=== PATIENT | male | born 1980 | race Hispanic/Latino ===

== ENCOUNTER 2022-06-08 07:51 | Emergency (ER) | payer OTHER, MEDICARE ==
[~2022-06-08] VITALS: Ht 185.4 cm; Wt 210.0 kg
[2022-06-08] MEDS ORDERED: ACETAMINOPHEN 500 MG TABLET ONE (09:12)
[2022-06-08 10:01] VITALS: BP 130/83
== END 2022-06-08 10:06 | disposition home or self-care (01) ==
LOC: EDH 07:51
DX: S96.912A Strain of unspecified muscle and tendon at ankle and foot level, left foot, initial encounter (principal); I10 Essential (primary) hypertension; K21.9 Gastro-esophageal reflux disease without esophagitis; F41.0 Panic disorder [episodic paroxysmal anxiety]; Z98.84 Bariatric surgery status; Z98.890 Other specified postprocedural states; X58.XXXA Exposure to other specified factors, initial encounter; Y93.89 Activity, other specified; Y92.89 Other specified places as the place of occurrence of the external cause; Y99.8 Other external cause status
CPT/HCPCS: 93971

== ENCOUNTER 2022-10-01 15:16 | Inpatient (IN) | payer OTHER ==
[~2022-10-01] VITALS: Ht 185.4 cm; Wt 190.8 kg
[~2022-10-01 15:16] MED LIST: DIPH1TAB PO; ONDA4TAB10 PO
[2022-10-01] MEDS ORDERED: ZOSYN 3.375GM+NS 50ML 50 ML IVPB STA (15:31)
[2022-10-01 15:51] LABS: HEMATOCRIT 50.1 % (42-54); MEAN CORPUSCULAR HEMOGLOBIN 30.5 pg (27.0-33.0); MEAN CORPUSCULAR HGB CONC 35.1 g/dL (32.0-36.0); MEAN CORPUSCULAR VOLUME 86.8 fL (79-99); RED BLOOD CELL COUNT(AUTO) 5.77 MIL/uL (4.50-6.20); RED CELL DISTRIBUTION WIDTH 14.9 % (11.0-15.5); WHITE BLOOD COUNT (AUTO) 3.9 K/uL (4.8-10.8)
[2022-10-01] MEDS ORDERED: 0.9%NACL 1000ML 2,397 ML IV ONE (16:00)
[2022-10-01] MEDS ORDERED: KETOROLAC 15MG/ML VIAL (15MG/ML) IV ONE (16:00)
[2022-10-01] MEDS ORDERED: ACETAMINOPHEN 325 MG TAB PO ONE (16:00)
[2022-10-01] MEDS ORDERED: PANTOPRAZOLE 40 MG/VIAL IVP ONE (16:00)
[2022-10-01] MEDS ORDERED: ONDANSETRON 4MG INJ IVP ONE (16:00)
[2022-10-01] MEDS ORDERED: MORPHINE 2 MG SYG IVP ONE (16:00)
[2022-10-01 16:08] LABS: CREATININE 1.9 mg/dL (0.5-1.5); POTASSIUM 4.1 mmol/L (3.5-5.1)
[2022-10-01 16:17] LABS: ALBUMIN 2.4 g/dL (3.5-5.0); TOTAL PROTEIN, SERUM 7.1 g/dL (6.0-8.3)
[2022-10-01] MEDS ORDERED: IOHEXOL-350 75 ML VIAL IV ONE (16:27)
[2022-10-01 16:47] VITALS: TEMP 98.9
[2022-10-01 17:48] LABS: APPEARANCE,URINE CLOUDY (CLEAR); BILIRUBIN,URINE NEGATIVE (NEGATIVE); COLOR,URINE YELLOW (YELLOW); GLUCOSE, URINE (UA) NEGATIVE (NEGATIVE); KETONES,URINE 5 mg/dL (NEGATIVE); LEUKOCYTE ESTERASE ,URINE NEGATIVE Leu/uL (NEGATIVE); NITRATE,URINE NEGATIVE (NEGATIVE); OCCULT BLOOD,URINE SMALL (NEGATIVE); PROTEIN,URINE 70 mg/dL (NEGATIVE); UROBILINOGEN,URINE 0.2 mg/dL (0.2-1.0)
[2022-10-01 17:51] LABS: BACTERIA,URINE RARE /HPF (None Seen); MUCUS,URINE RARE LPF (None Seen); OTHER CASTS, URINE 1 /LPF (None Seen); SQUAMOUS EPITHELIAL CELL,UR RARE /HPF (0-2); YEAST,URINE BUDDING FEW /HPF (None Seen)
[2022-10-01] MEDS ORDERED: MORPHINE 4 MG SYG IV PRN (18:30)
[2022-10-01] MEDS ORDERED: CEFTRIAXONE 1G VIAL 1 GM in 0.9%NACL 50ML 50 ML IV SCH (18:30)
[2022-10-01] MEDS ORDERED: ACETAMINOPHEN 325 MG TAB PO PRN (18:30)
[2022-10-01] MEDS ORDERED: ONDANSETRON 4MG INJ IV PRN (18:30)
[2022-10-01] MEDS ORDERED: LACTATED RINGERS 1000ML 2,397 ML IV ONE (19:00)
[2022-10-01] MEDS: CEFTRIAXONE 1G VIAL IVPB SCH (19:00)
[2022-10-01] MEDS: DOXYCYCLINE 100MG+NS 250ML 250 ML IV SCH (19:18)
[2022-10-01] MEDS: LACTATED RINGERS 1000ML 1,000 ML IV SCH (19:19)
[2022-10-01] MEDS: FAMOTIDINE 20MG TAB PO SCH (20:41)
[2022-10-01] MEDS: NYSTATIN 15 GM POWDER TP SCH (20:41)
[2022-10-01 21:00] VITALS: BP 87/63; PULSE 95; RESP 20
[2022-10-01 21:05] VITALS: BP 87/63; PULSE 95; RESP 21
[2022-10-01] MEDS: ALPRAZOLAM 1 MG TAB PO PRN (23:24)
[2022-10-01 23:34] VITALS: PULSE 95; RESP 18; RESP 20; O2SAT 92
[2022-10-01] MEDS: IPRATROPIUM/ALBUTEROL SULFATE 3 ML SOLUTION IH SCH (23:34)
[2022-10-01 23:38] LABS: CREATININE,URINE RANDOM 284 mg/dL (30-135); SODIUM,URINE RANDOM < 14 mmol/l (40-220)
[2022-10-02] VITALS (14 sets, daily range): BP systolic 101–150; BP diastolic 52–72; PULSE 88–101; RESP 16–22; O2SAT 94–95
[2022-10-02 05:19] LABS: BASOPHILS % (AUTO) 1.2 % (0.0-5.0); CREATININE 1.5 mg/dL (0.5-1.5); EOSINOPHILS % (AUTO) 0.2 % (0.0-8.0); LYMPHOCYTES % (AUTO) 19.7 % (21.0-51.0); MAGNESIUM 1.7 mg/dL (1.80-2.40); MEAN CORPUSCULAR HEMOGLOBIN 30.7 pg (27.0-33.0); MEAN CORPUSCULAR HGB CONC 35.2 g/dL (32.0-36.0); MEAN CORPUSCULAR VOLUME 87.1 fL (79-99); MONOCYTES % (AUTO) 20.2 % (3.0-13.0); NEUTROPHILS % (AUTO) 58.2 % (40.0-77.0); PHOSPHORUS 1.8 mg/dL (2.5-4.9); PLATELET COUNT (AUTO) 71 K/uL (130-400); POTASSIUM 3.4 mmol/L (3.5-5.1); RED BLOOD CELL COUNT(AUTO) 5.05 MIL/uL (4.50-6.20); WHITE BLOOD COUNT (AUTO) 5.7 K/uL (4.8-10.8)
[2022-10-02] MEDS: DOXYCYCLINE 100MG+NS 250ML 250 ML IV SCH ×2 (05:25→18:30)
[2022-10-02] MEDS: IPRATROPIUM/ALBUTEROL SULFATE 3 ML SOLUTION IH SCH ×4 (06:40→23:14)
[2022-10-02] MEDS: LACTATED RINGERS 1000ML 1,000 ML IV SCH ×2 (07:50→16:47)
[2022-10-02] MEDS ORDERED: POTASSIUM CHLORIDE 10% ELIXIR 20 MEQ/15 ML UDCUP PO PRN (08:00)
[2022-10-02] MEDS ORDERED: POTASSIUM CHLORIDE 20MEQ/100ML 100 ML IV PRN (08:00)
[2022-10-02] MEDS: FAMOTIDINE 20MG TAB PO SCH ×2 (08:21→21:08)
[2022-10-02] MEDS: KCL 20 MEQ ERTAB PO PRN ×2 (08:21→12:45)
[2022-10-02] MEDS: MAGNESIUM 2GM PREMIX 50ML 50 ML IV PRN (08:21)
[2022-10-02] MEDS: ACETAMINOPHEN 325 MG TAB PO PRN (08:26)
[2022-10-02] MEDS ORDERED: ENOXAPARIN SODIUM 40 MG/0.4 ML SYRINGE SQ SCH (09:00)
[2022-10-02] MEDS: NYSTATIN 15 GM POWDER TP SCH ×3 (09:22→21:10)
[2022-10-02] MEDS ORDERED: FLUCONAZOLE 100 MG TAB PO ONE (10:00)
[2022-10-02] MEDS ORDERED: PEG 3350/NA SULF,BICARB,CL/KCL 4000 ML SOLN PO STA (18:01)
[2022-10-02] MEDS ORDERED: PEG 3350/NA SULF,BICARB,CL/KCL 4000 ML SOLN PO ONE (18:30)
[2022-10-02] MEDS: CEFTRIAXONE 1G VIAL IVPB SCH (21:08)
[2022-10-02] MEDS: ALPRAZOLAM 1 MG TAB PO PRN (23:58)
[2022-10-03] VITALS (15 sets, daily range): BP systolic 98–130; BP diastolic 60–93; PULSE 75–105; RESP 16–22; O2SAT 94–97
[2022-10-03 04:38] LABS: BASOPHILS % (AUTO) 0.1 % (0.0-5.0); EOSINOPHILS % (AUTO) 0.1 % (0.0-8.0); HEMATOCRIT 42.6 % (42-54); LYMPHOCYTES % (AUTO) 17.7 % (21.0-51.0); MEAN CORPUSCULAR HEMOGLOBIN 29.9 pg (27.0-33.0); MEAN CORPUSCULAR HGB CONC 33.8 g/dL (32.0-36.0); MEAN CORPUSCULAR VOLUME 88.6 fL (79-99); MONOCYTES % (AUTO) 14.2 % (3.0-13.0); PLATELET COUNT (AUTO) 90 K/uL (130-400); RED BLOOD CELL COUNT(AUTO) 4.81 MIL/uL (4.50-6.20); RED CELL DISTRIBUTION WIDTH 15.4 % (11.0-15.5); WHITE BLOOD COUNT (AUTO) 10.9 K/uL (4.8-10.8)
[2022-10-03 05:35] LABS: CREATININE 1.2 mg/dL (0.5-1.5); POTASSIUM 3.4 mmol/L (3.5-5.1)
[2022-10-03 05:44] LABS: CRP QUANTITATIVE 238.1 mg/L (0.00-9.0)
[2022-10-03] MEDS: IPRATROPIUM/ALBUTEROL SULFATE 3 ML SOLUTION IH SCH ×4 (06:00→23:00)
[2022-10-03] MEDS: DOXYCYCLINE 100MG+NS 250ML 250 ML IV SCH ×2 (06:44→17:40)
[2022-10-03] MEDS: FAMOTIDINE 20MG TAB PO SCH ×2 (08:55→21:26)
[2022-10-03] MEDS: NYSTATIN 15 GM POWDER TP SCH ×3 (09:00→21:26)
[2022-10-03 10:42] LABS: INR 0.93 (0.85-1.15); PROTHROMBIN TIME 10.8 SEC (9.6-11.6)
[2022-10-03 10:43] LABS: PARTIAL THROMBOPLASTIN TIME 27.5 SEC (26.3-35.5)
[2022-10-03] MEDS ORDERED: PROPOFOL 10 MG/ML 20ML VIAL IV ONE ×2 (10:55)
[2022-10-03] MEDS ORDERED: FENTANYL CITRATE PF 50 MCG/1 ML 2ML VIAL ONE (10:55)
[2022-10-03] MEDS ORDERED: LIDOCAINE HCL 1% 20 ML VIAL ONE (10:55)
[2022-10-03] MEDS: METRONIDAZOLE 500MG/100ML BAG 100 ML IVPB SCH ×2 (14:31→21:26)
[2022-10-03] MEDS: MORPHINE 2 MG SYG IV PRN (17:42)
[2022-10-03] MEDS: CEFTRIAXONE 1G VIAL IVPB SCH (18:46)
[2022-10-03] MEDS: ALPRAZOLAM 1 MG TAB PO PRN (23:13)
[2022-10-04] VITALS (12 sets, daily range): BP systolic 112–141; BP diastolic 50–80; PULSE 84–94; RESP 18–21; O2SAT 94–97
[2022-10-04] MEDS: MORPHINE 2 MG SYG IV PRN (00:58)
[2022-10-04] MEDS ORDERED: PHARMACY COMMUNICATION MISC SCH (04:30)
[2022-10-04] MEDS ORDERED: CALCIUM CARB 500MG CHEW TAB PO PRN ×2 (04:30)
[2022-10-04] MEDS: METRONIDAZOLE 500MG/100ML BAG 100 ML IVPB SCH ×3 (05:36→22:49)
[2022-10-04] MEDS: IPRATROPIUM/ALBUTEROL SULFATE 3 ML SOLUTION IH SCH ×4 (06:00→22:49)
[2022-10-04 06:16] LABS: BASOPHILS % (AUTO) 0.1 % (0.0-5.0); EOSINOPHILS % (AUTO) 0.3 % (0.0-8.0); HEMATOCRIT 41.5 % (42-54); LYMPHOCYTES % (AUTO) 19.3 % (21.0-51.0); MEAN CORPUSCULAR HEMOGLOBIN 30.5 pg (27.0-33.0); MEAN CORPUSCULAR VOLUME 89.6 fL (79-99); MONOCYTES % (AUTO) 8.5 % (3.0-13.0); NEUTROPHILS % (AUTO) 69.4 % (40.0-77.0); PLATELET COUNT (AUTO) 115 K/uL (130-400); RED BLOOD CELL COUNT(AUTO) 4.63 MIL/uL (4.50-6.20); RED CELL DISTRIBUTION WIDTH 15.6 % (11.0-15.5); WHITE BLOOD COUNT (AUTO) 12.4 K/uL (4.8-10.8)
[2022-10-04 06:23] LABS: INR 0.93 (0.85-1.15); PROTHROMBIN TIME 10.7 SEC (9.6-11.6)
[2022-10-04 06:31] LABS: ALBUMIN 1.9 g/dL (3.5-5.0); BILIRUBIN,DIRECT 0.2 mg/dL (0.0-0.3); CREATININE 0.8 mg/dL (0.5-1.5); MAGNESIUM 1.6 mg/dL (1.80-2.40); TOTAL PROTEIN, SERUM 5.8 g/dL (6.0-8.3)
[2022-10-04 06:33] LABS: POTASSIUM 2.9 mmol/L (3.5-5.1)
[2022-10-04 06:41] LABS: CRP QUANTITATIVE 176.6 mg/L (0.00-9.0)
[2022-10-04] MEDS: KCL 20 MEQ ERTAB PO PRN ×3 (06:46→12:18)
[2022-10-04] MEDS: DOXYCYCLINE 100MG+NS 250ML 250 ML IV SCH ×2 (06:47→19:54)
[2022-10-04] MEDS: MAGNESIUM 2GM PREMIX 50ML 50 ML IV PRN (06:47)
[2022-10-04 07:37] LABS: ERYTHROCYTE SEDIMENTATION RATE 60 MM/HR (0-15)
[2022-10-04] MEDS: FAMOTIDINE 20MG TAB PO SCH ×2 (09:10→20:21)
[2022-10-04] MEDS: NYSTATIN 15 GM POWDER TP SCH ×3 (09:16→20:28)
[2022-10-04] MEDS: ALPRAZOLAM 1 MG TAB PO PRN (22:18)
[2022-10-04] MEDS: LOPERAMIDE 1 MG/7.5 ML UDCUP PO PRN ×2 (22:18→22:47)
[2022-10-04] MEDS: CEFTRIAXONE 1G VIAL IVPB SCH (22:18)
[2022-10-05] VITALS: BP 119/69; PULSE 87; RESP 18
[2022-10-05] MEDS ORDERED: LISI1TAB53 PO (02:37)
[2022-10-05] MEDS ORDERED: MONT-39 PO (02:37)
[2022-10-05] MEDS ORDERED: TRAM50TA4 PO (02:37)
[2022-10-05] MEDS ORDERED: LINA290C PO (02:37)
[2022-10-05] MEDS ORDERED: DICY20TA2 PO (02:37)
[2022-10-05] MEDS ORDERED: ROSU20TA73 PO (02:37)
[2022-10-05] MEDS ORDERED: ALPR2TAB7 PO (02:37)
[2022-10-05] MEDS ORDERED: TRAM-355 PO (02:37)
[2022-10-05] MEDS ORDERED: BUPR-49 PO (02:37)
[2022-10-05] MEDS ORDERED: URSO300C4 PO (02:37)
[2022-10-05] MEDS ORDERED: OMEP40CA21 PO (02:37)
[2022-10-05 04:00] VITALS: BP 108/58; PULSE 81; RESP 19
[2022-10-05] MEDS: ACETAMINOPHEN 325 MG TAB PO PRN (04:49)
[2022-10-05 05:55] LABS: BASOPHILS % (AUTO) 0.1 % (0.0-5.0); EOSINOPHILS % (AUTO) 0.7 % (0.0-8.0); HEMATOCRIT 44.9 % (42-54); LYMPHOCYTES % (AUTO) 28.1 % (21.0-51.0); MEAN CORPUSCULAR HEMOGLOBIN 29.8 pg (27.0-33.0); MEAN CORPUSCULAR HGB CONC 32.7 g/dL (32.0-36.0); MEAN CORPUSCULAR VOLUME 91.1 fL (79-99); MONOCYTES % (AUTO) 10.5 % (3.0-13.0); NEUTROPHILS % (AUTO) 58.9 % (40.0-77.0); PLATELET COUNT (AUTO) 150 K/uL (130-400); RED BLOOD CELL COUNT(AUTO) 4.93 MIL/uL (4.50-6.20); RED CELL DISTRIBUTION WIDTH 15.9 % (11.0-15.5); WHITE BLOOD COUNT (AUTO) 10.2 K/uL (4.8-10.8)
[2022-10-05] MEDS: METRONIDAZOLE 500MG/100ML BAG 100 ML IVPB SCH (06:00)
[2022-10-05 06:11] LABS: ALBUMIN 1.9 g/dL (3.5-5.0); MAGNESIUM 1.5 mg/dL (1.80-2.40); POTASSIUM 3.2 mmol/L (3.5-5.1); TOTAL PROTEIN, SERUM 6.2 g/dL (6.0-8.3)
[2022-10-05] MEDS: DOXYCYCLINE 100MG+NS 250ML 250 ML IV SCH (06:25)
[2022-10-05] MEDS: KCL 20 MEQ ERTAB PO PRN ×3 (06:37→11:17)
[2022-10-05] MEDS ORDERED: TAMS-1 PO (07:20)
[2022-10-05 07:57] VITALS: BP 127/74; PULSE 93; RESP 20
[2022-10-05] MEDS ORDERED: MAGNESIUM OXIDE 400 MG TABLET PO ONE (08:00)
[2022-10-05 08:45] VITALS: O2SAT 97
[2022-10-05] MEDS: FAMOTIDINE 20MG TAB PO SCH (08:56)
[2022-10-05] MEDS: NYSTATIN 15 GM POWDER TP SCH (09:00)
[2022-10-05] MEDS ORDERED: METRONIDAZOLE 500 MG TABLET PO SCH (09:00)
[2022-10-05] MEDS ORDERED: DOXYCYCLINE HYCLATE 100 MG TABLET PO SCH (09:00)
[2022-10-05 11:00] VITALS: BP 129/83; PULSE 75; RESP 20
[2022-10-05] MEDS ORDERED: LACT1TAB26 PO (12:56)
[2022-10-05] MEDS ORDERED: LEVO-70 PO (12:56)
[2022-10-05] MEDS ORDERED: METR-172 PO (12:56)
== END 2022-10-05 14:38 | disposition home or self-care (01) | DRG 871 ==
LOC: EDH 15:16 → EDHIP 18:21 → 4BH 21:17
PROVIDERS: ADMIT Internal Medicine; ATTEND Internal Medicine
PROC: 0DBK8ZX Excision of Ascending Colon, Via Natural or Artificial Opening Endoscopic, Diagnostic (ICD-10-PCS; principal; 2022-10-03)
PROC: 0DBL8ZX Excision of Transverse Colon, Via Natural or Artificial Opening Endoscopic, Diagnostic (ICD-10-PCS; 2022-10-03)
PROC: 0DBN8ZX Excision of Sigmoid Colon, Via Natural or Artificial Opening Endoscopic, Diagnostic (ICD-10-PCS; 2022-10-03)
PROC: 0DBP8ZX Excision of Rectum, Via Natural or Artificial Opening Endoscopic, Diagnostic (ICD-10-PCS; 2022-10-03)
PROC: 0DBM8ZX Excision of Descending Colon, Via Natural or Artificial Opening Endoscopic, Diagnostic (ICD-10-PCS; 2022-10-03)
PROC: 0DBH8ZX Excision of Cecum, Via Natural or Artificial Opening Endoscopic, Diagnostic (ICD-10-PCS; 2022-10-03)
DX: A41.9 Sepsis, unspecified organism (principal); J18.9 Pneumonia, unspecified organism; N17.9 Acute kidney failure, unspecified; Z68.43 Body mass index [BMI] 50.0-59.9, adult; R65.20 Severe sepsis without septic shock; Z20.822 Contact with and (suspected) exposure to COVID-19; D69.6 Thrombocytopenia, unspecified; D70.9 Neutropenia, unspecified; E66.01 Morbid (severe) obesity due to excess calories; B37.2 Candidiasis of skin and nail; E86.0 Dehydration; I10 Essential (primary) hypertension; K21.9 Gastro-esophageal reflux disease without esophagitis; K52.9 Noninfective gastroenteritis and colitis, unspecified; J02.0 Streptococcal pharyngitis; Z59.00 Homelessness unspecified; Z87.11 Personal history of peptic ulcer disease
CPT/HCPCS: 36415; 43200; 45380; 71045; 74177; 80048; 80053; 80076; 81001; 82105; 82570; 83605; 83690; 83735; 83880; 83935; 84100; 84145; 84300; 84484; 85025; 85027; 85610; 85651; 85730; 86140; 87040; 87046; 87088; 87177; 87426; 87507; 87804; 87880; 93005; 94640; 94664; 99291; A4606; C9113; G0378; J0696; J1885; J2270; J2405; J2543; J2704; J3010; J3475; J3480; J3490; J7030; J7120; Q9967; A4215; A4216; A4222; A4223; A4620; A4657; A7002

== ENCOUNTER 2023-01-26 06:54 | Day surgery (SDC) | payer OTHER, MEDICARE ==
[2023-01-22 15:45] LABS: BASOPHILS # (AUTO) 0.02 K/uL (0.00-0.20); BASOPHILS % (AUTO) 0.2 % (0.0-5.0); EOSINOPHILS # (AUTO) 0.11 K/uL (0.00-0.70); HEMATOCRIT 44.9 % (42-54); IMMATURE GRANULOCYTE ABSOLUTE 0.03 K/uL (0-1); LYMPHOCYTES # (AUTO) 3.6 K/uL (1.0-4.8); LYMPHOCYTES % (AUTO) 32.4 % (21.0-51.0); MEAN CORPUSCULAR HEMOGLOBIN 30.8 pg (27.0-33.0); MEAN CORPUSCULAR HGB CONC 33.9 g/dL (32.0-36.0); MEAN CORPUSCULAR VOLUME 90.9 fL (79-99); MONOCYTES # (AUTO) 0.8 K/uL (0.1-1.0); NEUTROPHILS # (AUTO) 6.5 K/uL (1.8-7.7); NEUTROPHILS % (AUTO) 59.1 % (40.0-77.0); PLATELET COUNT (AUTO) 170 K/uL (130-400); RED BLOOD CELL COUNT(AUTO) 4.94 MIL/uL (4.50-6.20)
[2023-01-22 15:54] LABS: INR < 0.93 (0.85-1.15); PROTHROMBIN TIME 10.3 SEC (9.6-11.6)
[2023-01-22 15:55] LABS: PARTIAL THROMBOPLASTIN TIME 28.2 SEC (26.3-35.5)
[2023-01-22 16:03] VITALS: BP 123/71; PULSE 101; RESP 20
[2023-01-22 16:09] LABS: ALBUMIN 3.1 g/dL (3.5-5.0); BILIRUBIN,TOTAL 0.2 mg/dL (0.2-1.0); CREATININE 0.9 mg/dL (0.5-1.5); POTASSIUM 4.1 mmol/L (3.5-5.1); TOTAL PROTEIN, SERUM 7.4 g/dL (6.0-8.3)
[2023-01-26] VITALS (18 sets, daily range): BP systolic 97–125; BP diastolic 64–78; PULSE 55–67; RESP 13–19
[~2023-01-26] VITALS: Ht 190.5 cm; Wt 174.2 kg
[~2023-01-26 06:54] MED LIST changes: +ALPR2TAB7 PO; +BUPR-49 PO; -DIPH1TAB PO; +LACT1TAB26 PO; +LISI1TAB53 PO; +MESA1.2T3 PO; +MONT-39 PO; +OMEP40CA21 PO; -ONDA4TAB10 PO; +ROSU20TA73 PO; +TAMS-1 PO; +TRAM50TA4 PO; +URSO300C4 PO
[2023-01-26] MEDS ORDERED: LACTATED RINGERS 1000ML 1,000 ML IV ONE (07:34)
[2023-01-26] MEDS ORDERED: BUPIVACAINE/PF 0.25% 30ML VIAL IJ ONE (07:40)
[2023-01-26] MEDS ORDERED: LIDOCAINE HCL 1% MDV 50ML VIAL ONE (07:40)
[2023-01-26] MEDS: MEROPENEM 1 GM VIAL ONE ×2 (08:04→09:45)
[2023-01-26] MEDS ORDERED: KETAMINE 50MG/ML SYRINGE 50 MG/ML DISP.SYRIN ONE (09:43)
[2023-01-26] MEDS ORDERED: MIDAZOLAM HCL 1 MG/ML 2ML VIAL ONE (09:46)
[2023-01-26] MEDS ORDERED: GLYCOPYRROLATE 1 MG/5 ML SYRINGE ONE (09:47)
[2023-01-26] MEDS ORDERED: FENTANYL CITRATE PF 50 MCG/1 ML 2ML VIAL ONE (09:58)
== END 2023-01-26 12:00 | disposition home or self-care (01) ==
LOC: DAH 06:54
PROVIDERS: ATTEND Surgery
DX: A63.0 Anogenital (venereal) warts (principal); I10 Essential (primary) hypertension; J45.909 Unspecified asthma, uncomplicated; K21.9 Gastro-esophageal reflux disease without esophagitis; F41.9 Anxiety disorder, unspecified; E66.01 Morbid (severe) obesity due to excess calories; F17.200 Nicotine dependence, unspecified, uncomplicated; K59.04 Chronic idiopathic constipation; K51.011 Ulcerative (chronic) pancolitis with rectal bleeding; R15.1 Fecal smearing; Z90.89 Acquired absence of other organs; Z98.84 Bariatric surgery status; Z98.890 Other specified postprocedural states; Z72.89 Other problems related to lifestyle; Z79.899 Other long term (current) drug therapy; Z79.01 Long term (current) use of anticoagulants; Z68.43 Body mass index [BMI] 50.0-59.9, adult
CPT/HCPCS: 80053; 85025; 85610; 85730; 36415; 93005; 46922; 88305; A6260; A4663; A4606; J7120; J3010; J3490 ×3; J0665; J2250; J2185; A4223; A4222; A4216; A4215 ×2; A4221

== ENCOUNTER 2024-02-11 22:14 | Emergency (ER) | payer OTHER, MEDICARE ==
[~2024-02-11] VITALS: Ht 180.3 cm; Wt 127.0 kg
[~2024-02-11 22:14] MED LIST changes: -ROSU20TA73 PO; +ROSU20TA98 PO
[2024-02-11 22:37] LABS: BASOPHILS # (AUTO) 0.03 K/uL (0.00-0.20); BASOPHILS % (AUTO) 0.4 % (0.0-5.0); EOSINOPHILS % (AUTO) 1.3 % (0.0-8.0); HEMATOCRIT 45.4 % (42-54); IMMATURE GRANULOCYTE ABSOLUTE 0.01 K/uL (0-1); LYMPHOCYTES # (AUTO) 3.2 K/uL (1.0-4.8); MEAN CORPUSCULAR HGB CONC 33.5 g/dL (32.0-36.0); MEAN CORPUSCULAR VOLUME 89.7 fL (79-99); MONOCYTES # (AUTO) 0.5 K/uL (0.1-1.0); MONOCYTES % (AUTO) 6.4 % (3.0-13.0); NEUTROPHILS # (AUTO) 3.8 K/uL (1.8-7.7); NEUTROPHILS % (AUTO) 49.8 % (40.0-77.0); PLATELET COUNT (AUTO) 141 K/uL (130-400); RED BLOOD CELL COUNT(AUTO) 5.06 MIL/uL (4.50-6.20); RED CELL DISTRIBUTION WIDTH 13.2 % (11.0-15.5); WHITE BLOOD COUNT (AUTO) 7.7 K/uL (4.8-10.8)
[2024-02-11 22:45] LABS: CARBON DIOXIDE 35 mmol/L (21-32); CHLORIDE 107 mmol/L (101-111); CREATININE 1.1 mg/dL (0.5-1.3); GLOMERULAR FILTR. RATE CALC 86 mL/min (>90); GLUCOSE,RANDOM 78 mg/dL (70-105); POTASSIUM 3.9 mmol/L (3.5-5.1); SODIUM SERUM 146 mmol/L (136-145); UREA NITROGEN, BLOOD 15 mg/dL (7-18)
[2024-02-11 22:49] LABS: APPEARANCE,URINE CLEAR (CLEAR); BILIRUBIN,URINE NEGATIVE (NEGATIVE); COLOR,URINE YELLOW (YELLOW); GLUCOSE, URINE (UA) NEGATIVE (NEGATIVE); KETONES,URINE 5 mg/dL (NEGATIVE); LEUKOCYTE ESTERASE ,URINE NEGATIVE Leu/uL (NEGATIVE); NITRATE,URINE NEGATIVE (NEGATIVE); OCCULT BLOOD,URINE NEGATIVE (NEGATIVE); PROTEIN,URINE 30 mg/dL (NEGATIVE); UROBILINOGEN,URINE 6 mg/dL (0.2-1.0)
[2024-02-11 22:50] LABS: ADD UA MICROSCOPIC YES
[2024-02-11 22:50] LABS: ALCOHOL, BLOOD < 3 mg/dL (0-10); CREATINE KINASE, TOTAL 118 U/L (21-232)
[2024-02-11 22:53] LABS: MUCUS,URINE FEW LPF (None Seen); RBC,URINE 0-1 /HPF (0-1); SQUAMOUS EPITHELIAL CELL,UR RARE /HPF (0-2)
[2024-02-11 22:56] LABS: AMPHET/METH SCREEN,URINE POSITIVE (NEGATIVE); BARBITURATE SCREEN, URINE NEGATIVE (NEGATIVE); BENZODIAZEPINES SCREEN,URINE NEGATIVE (NEGATIVE); CANNABINOID SCREEN,URINE NEGATIVE (NEGATIVE); COCAINE SCREEN,URINE POSITIVE (NEGATIVE); OPIATE SCREEN,URINE NEGATIVE (NEGATIVE); PHENCYCLIDINE SCREEN,URINE NEGATIVE (NEGATIVE)
[2024-02-11 22:57] LABS: ACETAMINOPHEN < 1 mcg/mL (10-29); SALICYLATE < 2.8 mg/dL (2.8-20.0)
--- NOTE | 2024-02-11 23:01 | NUR ---
HAFSA RYDER CONTACTED TO INITIATE SCREENING
--- NOTE | 2024-02-11 23:37 | NUR ---
PAUL SARGENT, SCREENER WITH [facility], WILL COME TO ASSESS PATIENT 2-3 AM. COPIES OF LABS AND FACE SHEET FAXED TO [phone].
--- NOTE | 2024-02-12 02:03 | NUR ---
screener at bedside
--- NOTE | 2024-02-12 03:38 | ERN ---
General Chief Complaint: Suicidal Ideation Stated Complaint: SUICIDAL IDEATIONS Time Seen by MD: 22:15 Time Seen by Midlevel: 22:15 Source: patient History of Present Illness Initial Comments Patient is a 43-year-old male being brought in by EMS for evaluation suicidal ideation. Patient has a self-inflicted laceration to the right wrist. Patient states he intended to harm himself and has a attempted to harm himself in the past. Allergies: Coded Allergies: No Known Drug Allergies (Unverified Allergy, Unknown, 09/18/22) Home Meds Active Scripts Lactobacillus Acidophilus (Probiotic Acidophilus) 1 Each Tablet, 1 EACH PO ACHS for 10 Days, #40 TAB Prov:PAVAN MORALES NP 10/05/22 Reported Medications Mesalamine (Mesalamine) 1.2 Gram Tablet.dr, 2 TAB PO DAILY 01/22/23 Tamsulosin HCl (Flomax) 0.4 Mg Cap.er.24h, 1 TAB PO DAILY 10/05/22 Tramadol Hcl (Tramadol HCl) 50 Mg Tablet, 1 TAB PO TIDP PRN for PAIN LEVEL 1 TO 3 10/05/22 Omeprazole (Omeprazole) 40 Mg Capsule.dr, 1 CAP PO DAILY 10/05/22 Alprazolam (Alprazolam) 2 Mg Tablet, 1 TAB PO HSPRN PRN for AGITATION/INSOMNIA 10/05/22 Ursodiol (Actigall/Silvino) 300 Mg Cap, 1 CAP PO BID 10/05/22 Rosuvastatin Calcium (Rosuvastatin Calcium) 20 Mg Tablet, 1 TAB PO HS 10/05/22 Lisinopril/Hydrochlorothiazide (Lisinopril-Hctz 20-25 mg Tab) 1 Each Tablet, 1 TAB PO DAILY 10/05/22 Montelukast Sodium (Montelukast Sodium) 10 Mg Tablet, 1 TAB PO DAILY 10/05/22 Bupropion HCl (Bupropion Xl) 150 Mg Tab.er.24h, 1 TAB PO DAILY 10/05/22 Past Medical History Past Medical History: Anxiety, Depression, GERD Past Surgical History: Other Surgical History Other: TESTICLE REMOVAL, ULCER REPAIR Social History Social History: Drugs ROS Dictation CONSTITUTIONAL: Negative except for HPI HEAD/FACE: Negative except for HPI EENT: Negative except for HPI RESPIRATORY: Negative except for HPI GASTROINTESTINAL/ABDOMINAL: Negative except for HPI GENITOURINARY: Negative except for HPI MUSCULOSKELETAL: Negative except for HPI INTEGUMENTARY: Negative except for HPI NEUROLOGICAL/PSYCH: Negative except for HPI HEMATOLOGIC/LYMPHATIC: Negative except for HPI All Systems Negative, Except as noted above. 13 point review of systems assessed and all negative except for above. Physical Exam Physical Exam Dictation Vital Signs reviewed General Appearance: Alert, oriented x 3, no acute distress, well developed, nourished. Head and Face: non-traumatic. Eyes: PERRL, pink conjunctivas, eyelid no trauma, anterior chamber with arcus senilis. Ears: Pinnas intact and no signs of trauma or erythema ear canals clear and no discharge TM no erythema Nose: No discharge, no bleeding. Oropharynx: Mouth normal, tongue pink, pharynx clear,no erythema, tonsils no exudates, no abscesses noted, mucous membrane moist Neck: Supple, non-tender, no thyromegaly, no masses, no JVD, no bruits Breast:Deferred Chest:No tenderness, no crepitus, no paradoxical movement, no retractions Lungs:Clear, well-ventilated, symmetric, no rales, no wheezing, no rhonchi, no stridor, good breath sounds bilaterally Heart: Regular rate, regular rhythm, no murmur, no gallops Vascular: no peripheral edema, Abdomen: Soft, positive bowel sounds, nondistended, no guarding, nontender, no rebound, no masses no hepatomegaly, no splenomegaly, no Snowden's sign, no hernias. Rectal: Deferred Genital: Deferred Neurological: Normal speech, motor function intact, sensory function intact Musculoskeletal: Neck nontender, full range of motion, back nontender, full range of motion, Extremities: nontender, full range of motion Skin: Superficial lacerations to the right wrist, no active bleeding Lymphatic: Deferred Results Laboratory and Microbiology Lab and Micro Result Laboratory Tests Test 02/11/24 22:31 02/11/24 22:38 White Blood Count 7.7 K/uL (4.8-10.8) Red Blood Count 5.06 MIL/uL (4.50-6.20) Hemoglobin 15.2 g/dL (14.0-18.0) Hematocrit 45.4 % (42-54) Mean Corpuscular Volume 89.7 fL (79-99) Mean Corpuscular Hemoglobin 30.0 pg (27.0-33.0) Mean Corpuscular Hemoglobin Concent 33.5 g/dL (32.0-36.0) Red Cell Distribution Width 13.2 % (11.0-15.5) Platelet Count 141 K/uL (130-400) Mean Platelet Volume 10.5 fL (7.5-10.5) Immature Granulocyte % (Auto) 0.1 % (0-1) Neutrophils (%) (Auto) 49.8 % (40.0-77.0) Lymphocytes (%) (Auto) 42.0 % (21.0-51.0) Monocytes (%) (Auto) 6.4 % (3.0-13.0) Eosinophils (%) (Auto) 1.3 % (0.0-8.0) Basophils (%) (Auto) 0.4 % (0.0-5.0) Neutrophils # (Auto) 3.8 K/uL (1.8-7.7) Lymphocytes # (Auto) 3.2 K/uL (1.0-4.8) Monocytes # (Auto) 0.5 K/uL (0.1-1.0) Eosinophils # (Auto) 0.10 K/uL (0.00-0.70) Basophils # (Auto) 0.03 K/uL (0.00-0.20) Absolute Immature Granulocyte (auto 0.01 K/uL (0-1) Nucleated Red Blood Cells 0.0 % (0.0-0.19) Sodium Level 146 mmol/L (136-145) H Potassium Level 3.9 mmol/L (3.5-5.1) Chloride Level 107 mmol/L (101-111) Carbon Dioxide Level 35 mmol/L (21-32) H Blood Urea Nitrogen 15 mg/dL (7-18) Creatinine 1.1 mg/dL (0.5-1.3) Glomerular Filtration Rate Calc 86 mL/min (>90) Random Glucose 78 mg/dL (70-105) Total Calcium 9.1 mg/dL (8.5-10.1) Total Creatine Kinase 118 U/L (21-232) Salicylates Level < 2.8 mg/dL (2.8-20.0) L Acetaminophen Level < 1 mcg/mL (10-29) L Serum Alcohol < 3 mg/dL (0-10) Urine Color YELLOW (YELLOW) Urine Appearance CLEAR (CLEAR) Urine pH 6.0 (5.0-8.0) Urine Specific [place] 1.030 (1.001-1.031) Urine Protein 30 mg/dL (NEGATIVE) H Urine Glucose (UA) NEGATIVE mg/dL (NEGATIVE) Urine Ketones 5 mg/dL (NEGATIVE) H Urine Occult Blood NEGATIVE (NEGATIVE) Urine Nitrate NEGATIVE (NEGATIVE) Urine Bilirubin NEGATIVE mg/dL (NEGATIVE) Urine Urobilinogen 6 mg/dL (0.2-1.0) H Urine Leukocyte Esterase NEGATIVE Yoly/uL Urine RBC 0-1 /HPF (0-1) Urine WBC 2-5 /HPF (0-1) H Urine Squamous Epithelial Cells RARE /HPF (0-2) Urine Bacteria None /HPF (None Seen) Urine Opiates Screen NEGATIVE (NEGATIVE) Urine Barbiturates Screen NEGATIVE (NEGATIVE) Urine Phencyclidine Screen NEGATIVE (NEGATIVE) Urine Amphetamines Screen POSITIVE (NEGATIVE) H Urine Benzodiazepines Screen NEGATIVE (NEGATIVE) Urine Cocaine Screen POSITIVE (NEGATIVE) H Urine Marijuana (THC) Screen NEGATIVE (NEGATIVE) Labs Reviewed?: Yes MDM MDM: Patient is a 43-year-old male being brought in by EMS for evaluation suicidal ideation. Patient has a self-inflicted laceration to the right wrist. Patient states he intended to harm himself and has a attempted to harm himself in the past. Physical examination is reassuring. Patient was medically cleared and he was screened. He patient does not meet criteria for inpatient psychiatric care. Safety plan was put in place and patient will be discharged home. Differential diagnosis: Suicide ideation, homicidal ideation, electrolyte abnormality, dehydration, There are no social concerns with this patient. Prescription drug management Prescriptions will include: None Medical management and examination interpretation discussions were had by me with other qualified healthcare professionals as indicated for the patient's care. ED Course Orders Procedure Category Date Status Time Drug Screen Urine LAB 02/11/24 Complete 22:15 Cbc With Differential LAB 02/11/24 Complete 22:15 Alcohol, Blood LAB 02/11/24 Complete 22:15 Salicylate LAB 02/11/24 Complete 22:15 Acetaminophen LAB 02/11/24 Complete 22:15 Urinalysis Profile LAB 02/11/24 Complete 22:15 Creatine Kinase, Total LAB 02/11/24 Complete 22:15 Basic Metabolic Panel LAB 02/11/24 Complete 22:15 Vital Signs Date Time Temp Pulse Resp B/P (MAP) Pulse Ox O2 Delivery O2 Flow Rate FiO2 02/12/24 00:45 98.4 79 15 125/61 98 Room Air* 0 21 02/11/24 22:16 98.8 84 20 131/56 98 Room Air 0 DX & DISP Disposition: Discharge Departure Impression: Primary Impression: Psychiatric problem Condition: Stable Additional Instructions: You were evaluated today and do not meet criteria for inpatient psychiatric care. Please follow up with your primary care doctor in 1-2 days for repeat evaluation. If you develop any new or worsening symptoms please report to the ER for further evaluation. Referrals: AVNI MASON MD (PCP) I have reviewed the case, and I agree with, Diagnosis and Plan I performed the substantive portion of the visit. I have reviewed and personally made and approve the management plan that is documented in the note by myself or the LEENA. I acknowledge for responsibility for the patient's management plan. LOGAN NIXON Feb 12, 2024 03:37
[2024-02-12 04:57] VITALS: BP 121/64; PULSE 72; RESP 15; TEMP 97.7; O2SAT 98
== END 2024-02-12 05:01 | disposition home or self-care (01) ==
LOC: EDH 22:14
DX: F99 Mental disorder, not otherwise specified (principal); S61.511A Laceration without foreign body of right wrist, initial encounter; F32.A Depression, unspecified; F41.9 Anxiety disorder, unspecified; K21.9 Gastro-esophageal reflux disease without esophagitis; Z79.899 Other long term (current) drug therapy; Z90.79 Acquired absence of other genital organ(s); X78.8XXA Intentional self-harm by other sharp object, initial encounter; Y93.89 Activity, other specified; Y92.89 Other specified places as the place of occurrence of the external cause; Y99.8 Other external cause status
CPT/HCPCS: 99283; 82550; 80048; 80305; 85025; 36415; 81001; G0481

== ENCOUNTER 2024-06-05 17:17 | Emergency (ER) | payer OTHER, MEDICARE ==
[~2024-06-05] VITALS: Ht 182.9 cm; Wt 141.5 kg
[2024-06-05 18:00] LABS: BASOPHILS # (AUTO) 0.03 K/uL (0.00-0.20); BASOPHILS % (AUTO) 0.3 % (0.0-5.0); EOSINOPHILS # (AUTO) 0.09 K/uL (0.00-0.70); HEMATOCRIT 41.5 % (42-54); IMMATURE GRANULOCYTE ABSOLUTE 0.03 K/uL (0-1); LYMPHOCYTES # (AUTO) 2.6 K/uL (1.0-4.8); LYMPHOCYTES % (AUTO) 29.5 % (21.0-51.0); MEAN CORPUSCULAR HEMOGLOBIN 29.7 pg (27.0-33.0); MONOCYTES # (AUTO) 0.5 K/uL (0.1-1.0); MONOCYTES % (AUTO) 5.2 % (3.0-13.0); NEUTROPHILS # (AUTO) 5.5 K/uL (1.8-7.7); NEUTROPHILS % (AUTO) 63.7 % (40.0-77.0); PLATELET COUNT (AUTO) 157 K/uL (130-400); RED BLOOD CELL COUNT(AUTO) 4.61 MIL/uL (4.50-6.20); RED CELL DISTRIBUTION WIDTH 14.3 % (11.0-15.5); WHITE BLOOD COUNT (AUTO) 8.7 K/uL (4.8-10.8)
[2024-06-05 18:12] LABS: CREATININE 0.9 mg/dL (0.5-1.3); POTASSIUM 3.9 mmol/L (3.5-5.1)
--- NOTE | 2024-06-05 18:22 | HMCIMG ---
PORTABLE CHEST RADIOGRAPH INDICATION: chest pain COMPARISON: 10/01/2022 FINDINGS: Shallow inspiration. Heart size is normal. The pulmonary vascularity and kermit appear normal. No abnormal pulmonary parenchymal opacity or consolidation identified. No significant pleural effusion noted. No pneumothorax detected. IMPRESSION: Shallow inspiration without radiographic evidence for any acute cardiopulmonary process.
[2024-06-05 18:35] LABS: AMPHET/METH SCREEN,URINE POSITIVE (NEGATIVE); BARBITURATE SCREEN, URINE NEGATIVE (NEGATIVE); BENZODIAZEPINES SCREEN,URINE NEGATIVE (NEGATIVE); CANNABINOID SCREEN,URINE NEGATIVE (NEGATIVE); COCAINE SCREEN,URINE POSITIVE (NEGATIVE); OPIATE SCREEN,URINE NEGATIVE (NEGATIVE); PHENCYCLIDINE SCREEN,URINE NEGATIVE (NEGATIVE)
--- NOTE | 2024-06-05 18:53 | ERN ---
General Chief Complaint: Dizzy/Light Headed Stated Complaint: DIZZINESS Time Seen by MD: 17:22 History of Present Illness Initial Comments 43-year-old male presents for palpitations and dizziness. Patient did cocaine and afterward felt uncomfortable. He had a brief episode of palpitations. No syncope. No chest pain. No other symptoms. Allergies: Coded Allergies: No Known Drug Allergies (Unverified Allergy, Unknown, 09/18/22) Home Meds Active Scripts Lactobacillus Acidophilus (Probiotic Acidophilus) 1 Each Tablet, 1 EACH PO ACHS for 10 Days, #40 TAB Prov:PAVAN MORALES [employer] 10/05/22 Reported Medications Mesalamine (Mesalamine) 1.2 Gram Tablet.dr, 2 TAB PO DAILY 01/22/23 Tamsulosin HCl (Flomax) 0.4 Mg Cap.er.24h, 1 TAB PO DAILY 10/05/22 Tramadol Hcl (Tramadol HCl) 50 Mg Tablet, 1 TAB PO TIDP PRN for PAIN LEVEL 1 TO 3 10/05/22 Omeprazole (Omeprazole) 40 Mg Capsule.dr, 1 CAP PO DAILY 10/05/22 Alprazolam (Alprazolam) 2 Mg Tablet, 1 TAB PO HSPRN PRN for AGITATION/INSOMNIA 10/05/22 Ursodiol (Actigall/Silvino) 300 Mg Cap, 1 CAP PO BID 10/05/22 Rosuvastatin Calcium (Rosuvastatin Calcium) 20 Mg Tablet, 1 TAB PO HS 10/05/22 Lisinopril/Hydrochlorothiazide (Lisinopril-Hctz 20-25 mg Tab) 1 Each Tablet, 1 TAB PO DAILY 10/05/22 Montelukast Sodium (Montelukast Sodium) 10 Mg Tablet, 1 TAB PO DAILY 10/05/22 Bupropion HCl (Bupropion Xl) 150 Mg Tab.er.24h, 1 TAB PO DAILY 10/05/22 Past Medical History Past Medical History: Hypertension, Other Medical History Other: OBESITY AND DRUG ABUSE Past Surgical History: Tonsillectomy Surgical History Other: GASTRIC SLEEVE Social History Social History: Drugs ROS Dictation CONSTITUTIONAL: No chills, no fever, no weakness, no diaphoresis, no malaise. HEAD/FACE: No signs of trauma. EENT: No eye pain, no blurred vision, no tearing, no double vision, no ear pain, no ear discharge, no nose pain, no nasal congestion, no throat pain, no throat swelling, no mouth pain. RESPIRATORY: No cough, no orthopnea, no SOB, no stridor, no wheezing. CARDIOVASCULAR: Palpitations GASTROINTESTINAL/ABDOMINAL: No abdominal pain, no constipation, no diarrhea, no nausea, no vomiting. GENITOURINARY: No abnormal discharge, no dysuria, no frequent urination, no hematuria. No complaints of pain in the genitals. MUSCULOSKELETAL: No back pain, no gout, no joint pain, no joint swelling, no muscle pain, no muscle stiffness, no neck pain. INTEGUMENTARY: No change in color, no change in hair/nails, no dryness, no lesion, no lumps, no rash. NEUROLOGICAL/PSYCH: No anxiety, not depressed, no emotional problem, no headache, no numbness, no pre-existing deficit, no history of seizures, no tremors, no weakness. HEMATOLOGIC/LYMPHATIC: Not anemic, no history of blood clots, no apparent bleeding, no bruising, glands not swollen. All Systems Negative, Except as Noted. Physical Exam Physical Exam Dictation VITAL SIGNS: Reviewed. GENERAL APPEARANCE: Alert, oriented x3, no acute distress, obese. HEAD AND FACE: Non-traumatic. EYES: PERRL, pink conjunctivas, eyelid no trauma, anterior chamber clear. EARS: Pinnas intact and no signs of trauma or erythema. Ear canals clear and no discharge. TMs no erythema. NOSE: No discharge, no bleeding. OROPHARYNX: Mouth normal, teeth no caries, tongue pink. Pharynx clear, no er ythema. Tonsils no exudates, no abscesses noted. Mucous membrane moist. NECK: Supple, non-tender, no thyromegaly, no masses, no JVD, no bruits. BREAST: Deferred. CHEST: No tenderness, no crepitus, no paradoxical movement, no retractions. LUNGS: Clear, well-ventilated, symmetric, no rales, no wheezing, no rhonchi, no stridor, good breath sounds bilaterally. HEART: Regular rate, regular rhythm, no murmur, no gallops. VASCULAR: No peripheral edema. ABDOMEN: Soft, positive bowel sounds, nondistended, no guarding, nontender, no rebound, no masses no hepatomegaly, no splenomegaly, no Snowden's sign, no hernias. RECTAL: Deferred. GENITAL: Deferred. NEUROLOGICAL: Normal speech, gross motor function intact, gross sensory function intact. MUSCULOSKELETAL: Neck nontender, full range of motion, back nontender, full range of motion. EXTREMITIES: Nontender, full range of motion. SKIN: Color pink, dry, no turgor, no rash, no lacerations, no abrasions, no contusions. LYMPHATICS: Deferred. Results Laboratory and Microbiology Lab and Micro Result Laboratory Tests Test 06/05/24 17:52 06/05/24 18:18 White Blood Count 8.7 K/uL (4.8-10.8) Red Blood Count 4.61 MIL/uL (4.50-6.20) Hemoglobin 13.7 g/dL (14.0-18.0) L Hematocrit 41.5 % (42-54) L Mean Corpuscular Volume 90.0 fL (79-99) Mean Corpuscular Hemoglobin 29.7 pg (27.0-33.0) Mean Corpuscular Hemoglobin Concent 33.0 g/dL (32.0-36.0) Red Cell Distribution Width 14.3 % (11.0-15.5) Platelet Count 157 K/uL (130-400) Mean Platelet Volume 10.3 fL (7.5-10.5) Immature Granulocyte % (Auto) 0.3 % (0-1) Neutrophils (%) (Auto) 63.7 % (40.0-77.0) Lymphocytes (%) (Auto) 29.5 % (21.0-51.0) Monocytes (%) (Auto) 5.2 % (3.0-13.0) Eosinophils (%) (Auto) 1.0 % (0.0-8.0) Basophils (%) (Auto) 0.3 % (0.0-5.0) Neutrophils # (Auto) 5.5 K/uL (1.8-7.7) Lymphocytes # (Auto) 2.6 K/uL (1.0-4.8) Monocytes # (Auto) 0.5 K/uL (0.1-1.0) Eosinophils # (Auto) 0.09 K/uL (0.00-0.70) Basophils # (Auto) 0.03 K/uL (0.00-0.20) Absolute Immature Granulocyte (auto 0.03 K/uL (0-1) Nucleated Red Blood Cells 0.0 % (0.0-0.19) Sodium Level 142 mmol/L (136-145) Potassium Level 3.9 mmol/L (3.5-5.1) Chloride Level 106 mmol/L (101-111) Carbon Dioxide Level 34 mmol/L (21-32) H Blood Urea Nitrogen 13 mg/dL (7-18) Creatinine 0.9 mg/dL (0.5-1.3) Glomerular Filtration Rate Calc 110 mL/min (>90) Random Glucose 93 mg/dL (70-105) Total Calcium 8.8 mg/dL (8.5-10.1) Troponin I High Sensitivity 5 ng/L (4-75) Serum Alcohol < 3 mg/dL (0-10) Urine Opiates Screen NEGATIVE (NEGATIVE) Urine Barbiturates Screen NEGATIVE (NEGATIVE) Urine Phencyclidine Screen NEGATIVE (NEGATIVE) Urine Amphetamines Screen POSITIVE (NEGATIVE) H Urine Benzodiazepines Screen NEGATIVE (NEGATIVE) Urine Cocaine Screen POSITIVE (NEGATIVE) H Urine Marijuana (THC) Screen NEGATIVE (NEGATIVE) MDM CC: Palpitations Historian: Patient Comorbidities: Anxiety, drug abuse Limitations by social determinants of health: None Vital signs: Stable, remained stable in the ER Labs (independently interpreted by me ): No leukocytosis or anemia. Metabolic panel is normal. Troponins normal. EKG: Sinus rhythm, rate 77 normal axis good R-wave progression intervals are stable. Independently interpreted by me. UDS positive for cocaine and amphetamine. Consistent with symptoms CXR (independently interpreted by me ): No acute abnormalities, no focal infiltrates Low heart score, likely related to drug use. Currently asymptomatic. We will DC ED Course Orders Procedure Category Date Status Time Cbc With Differential LAB 06/05/24 Complete 17:22 12 Lead Ekg Tracing- EKG 06/05/24 Logged Technical 17:22 Troponin I High LAB 06/05/24 Complete Sensitivity 17:22 Basic Metabolic Panel LAB 06/05/24 Complete 17:22 Drug Screen Urine LAB 06/05/24 Complete 17:22 Alcohol, Blood LAB 06/05/24 Complete 17:23 Chest 1vw RAD 06/05/24 Resulted 17:23 Vital Signs Date Time Temp Pulse Resp B/P (MAP) Pulse Ox O2 Delivery O2 Flow Rate FiO2 06/05/24 18:00 75 17 124/77 99 Room Air* 0 21 06/05/24 17:18 97.9 90 18 112/73 100 Room Air 0 DX & DISP Disposition: Discharge Departure Impression: Primary Impression: Drug abuse Condition: Stable Additional Instructions: There are no dangerous findings on your workup today. You EKGs stable. Your chest x-ray is stable. Your blood work is unremarkable. They have drug screen was positive for amphetamine and cocaine. The opiate screen was negative. Please return to the emergency department as needed. I recommend reducing recreational drug use. Referrals: NICOLETTE DOMINIQUE M.D. (PCP) DENISE PASCUAL DO Jun 05, 2024 18:53
[2024-06-05 18:57] VITALS: BP 129/76; PULSE 70; RESP 17; TEMP 98.6; O2SAT 96
--- NOTE | 2024-06-06 08:21 | EKG ---
[facility] Test Date: 2024-06-05 Test Time: 17:31:12 Pat Name: DISHA SMITH Department: [facility] Room: Gender: Male Fig [employer]her: [id number] : 1980 Requested By: DENISE PASCUAL Order Number: [id number] Reading MD: Measurements Intervals [place] Rate: 77 P: -5 ND: 165 QRS: 62 QRSD: 110 T: 30 QT: 371 QTc: 421 Interpretive Statements Sinus rhythm Low voltage, precordial leads No previous ECG available for comparison Please click the below link to view image of tracing.
== END 2024-06-05 19:10 | disposition home or self-care (01) ==
LOC: EDH 17:17
DX: F19.10 Other psychoactive substance abuse, uncomplicated (principal); E66.9 Obesity, unspecified; F41.9 Anxiety disorder, unspecified; I10 Essential (primary) hypertension; Z79.899 Other long term (current) drug therapy; Z90.89 Acquired absence of other organs
CPT/HCPCS: 36415; 71045; 80048; 80305; 84484; 85025; 93005; 99285